=== PATIENT | female | born 1985 | race Two or more races ===

== ENCOUNTER 2023-08-02 10:30 | Outpatient (CLI) | payer OTHER | END 2023-08-02 10:36 | disposition home or self-care (01) | LOC: MAMO-SONO 10:30 | PROVIDERS: ATTEND Obstetrics & Gynecology | DX: N94.0 Mittelschmerz (principal); R10.2 Pelvic and perineal pain; N94.89 Other specified conditions associated with female genital organs and menstrual cycle; N63 Unspecified lump in breast; N64.59 Other signs and symptoms in breast; N64.9 Disorder of breast, unspecified ==